=== PATIENT | female | born 1930 | race Caucasian/White ===

== ENCOUNTER 2017-01-29 14:31 | Observation (INO) ==
--- NOTE | 2017-01-29 14:57 | Emergency Department Note ---
Disposition Clinical Impression: Chest pain, HTN (hypertension), HLD (hyperlipidemia), Frail elderly, PVC ( premature ventricular contraction), Abnormal EKG, CAD (coronary artery disease) , Breast CA, Lymphedema, Hyponatremia, Cough Disposition: Admitted As Inpatient Referrals: NO,PCP [Non-Partnered Physician] - Forms: ED Satisfaction Letter General Adult HPI - General Chief complaint: ED Shortness of Breath/Dyspnea Stated complaint: SOB Time Seen by Provider: 01/29/17 14:40 Source: patient Limitations: no limitations - History of Present Illness HPI Narrative: 86-year-old female reports the emergency department complaining of a cough and runny nose. The patient reports her right arm is chronically swollen secondary to lymphedema status post breast resection for malignancy. She states that the arm was red and she thought she had cellulitis so she took some ampicillin that she had at home for several days and now her arm is no longer red. She reports her arm is markedly improved. The patient reports she felt somewhat chilled and had general body aches associated with a cough and runny nose. She ate she has had intermittent sharp chest pain she states she is somewhat short of breath typically with exertion. She also describes an irregular heartbeat.. There is no history of abdominal pain vomiting or diarrhea. No leg swelling or pain no coughing up blood or syncope confusion or difficulty moving the arms or legs independently. There is no history of acute back pain no fevers noted. No urinary symptoms. There is no history of dysarthria or trouble swallowing. Pain Scale: 8 - Related Data Home Medications Medication Instructions Recorded Confirmed Potassium Chloride [Klor-Con 2 cap PO BID 11/18/15 12/20/15 Sprinkle] Amlodipine Besylate 5 mg PO DAILY 12/20/15 12/20/15 Carboxymethylcellulose Sodium 1 drop OP QID 12/20/15 12/20/15 [Refresh Tears] Cephalexin [Keflex] 500 mg PO DAILY 12/20/15 12/20/15 Cyclosporine [Restasis] 1 each OP Q12H 12/20/15 12/20/15 Meclizine [Antivert] 25 mg PO TID PRN 12/20/15 12/20/15 Simvastatin [Zocor] 20 mg PO HS 12/20/15 12/20/15 Triamterene/HCTZ 37.5/25mg 1.5 each PO DAILY 12/20/15 12/20/15 [Dyazide] Vit A/C/E AC/Znox/Cupric Oxide 2 each PO DAILY 12/20/15 12/20/15 [Eye Vitamin-Minerals Tablet] Previous Rx's Medication Instructions Recorded Lactulose 10 gm PO BID PRN #200 mls 11/18/15 Dicyclomine [Bentyl] 10 mg PO DAILY #2 capsule 11/21/15 Pantoprazole Sodium [Protonix] 40 mg PO DAILY #30 tablet. 12/20/15 Sucralfate [Carafate] 1 gm PO BID #60 tablet 12/20/15 Allergies Allergy/AdvReac Type Severity Reaction Status Date / Time metoclopramide [From Reglan] Allergy Unknown Unknown Verified 05/12/16 11:38 Sulfa (Sulfonamide Allergy Unknown Unknown Verified 05/12/16 11:38 Antibiotics) tolterodine [From Detrol] Allergy Unknown Unknown Verified 05/12/16 11:38 All systems ED: reviewed and negative except as stated. 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 Absent: tenderness - Respiratory Respiratory exam: Present: normal lung sounds bilaterally. Absent: respiratory distress - Cardiovascular Cardiovascular exam: Present: regular rate, normal rhythm, normal heart sounds - Abdominal Exam Abdominal exam: Present: soft, Non-Tender, normal bowel sounds. Absent: tenderness, distention, guarding, rebound, rigidity - Extremities Exam Extremities exam: Present: normal inspection, full ROM, normal capillary refill , other (Exam is warm and well perfused without cyanosis, chronic-appearing lymphedema right upper extremity, no reddening of the skin, no pain in the calves, all 4 extremities are warm and well perfused with no evidence of neuromuscular neurovascular compromise no trauma.). Absent: tenderness, pedal edema, joint swelling, calf tenderness - Expanded Lower Extremity Exam Lower leg exam: Absent: Homans' sign Neurovascular/Tendon exam: Present: normal capillary refill. Absent: motor deficit, sensory deficit, tendon deficit, extremity cold to touch, pallor - Back Exam Back exam: Present: normal inspection, full ROM. Absent: tenderness, CVA tenderness (R), CVA tenderness (L), vertebral tenderness - Neurological Exam Neurological exam: Present: alert, oriented X3, CN II-XII intact. Absent: motor sensory deficit - Psychiatric Psychiatric exam: Present: normal affect, normal mood - Skin Skin exam: Present: warm, dry, intact, normal color. Absent: rash, cyanosis, diaphoresis, erythema, pallor, mottled Course Vital Signs Temperature 98.0 F 01/29/17 14:32 Pulse Rate 70 01/29/17 14:32 Respiratory Rate 16 01/29/17 14:32 Blood Pressure 167/54 01/29/17 14:32 O2 Sat by Pulse Oximetry 97 01/29/17 14:32 Temperature 98.0 F 01/29/17 14:32 Pulse Rate 80 01/29/17 15:36 Respiratory Rate 16 01/29/17 15:36 Blood Pressure 142/77 01/29/17 15:36 O2 Sat by Pulse Oximetry 97 01/29/17 15:36 Oxygen Delivery Oxygen Delivery Room Air Medical Decision Making - [facility] Narrative Medical decision making narrative: The patient is throwing quite a few PVCs on the monitor, she is elderly, has a history of hypertension, hyperlipidemia, CAD per chart, malignancy, has a notably abnormal EKG is complaining of progressive dyspnea particularly on exertion, she also complains of sharp intermittent chest pain and notes palpitations.. The patient has history of breast cancer and chronic right upper extremity edema. Her PERC score is slightly positive, her Well's score is negative. I do not necessarily suspect PE or DVT. Based on the patient's age and multiple cardiovascular comorbidities in association with complaints of dyspnea on exertion and intermittent chest pain I thought it would be appropriate to admit the patient for observation. I discussed the case with the hospitalist on-call. Aspirin was ordered. - Lab Data Lab results reviewed: Yes I reviewed the patient's lab results. Result diagrams: 01/29/17 15:20 01/29/17 15:20 Lab Results 01/29/17 01/29/17 01/29/17 Range/Units 15:20 15:20 15:20 WBC 9.7 (4.3-11.1) K/mcL RBC 4.35 (3.82-4.97) M/mcL Hgb 13.4 (11.5-15.4) g/dL Hct 37.0 (35.3-44.9) % MCV 85.1 (83.0-100.0) fL MCH 30.8 (28.0-33.3) pg MCHC 36.2 H (31.6-35.5) g/dL RDW 12.2 (11.5-14.5) % Plt Count 312 (140-400) K/mcL MPV 9.3 L (9.4-12.4) fL Immature Gran % 0.4 (0-4) % Seg Neutrophils % 64.0 % Lymphocytes % 25.0 % Monocytes % 9.4 % Eosinophils % 0.7 % Basophils % 0.5 % Neutrophils # 6.2 (1.6-8.9) K/mcL Lymphocytes # 2.4 (0.6-4.6) K/mcL Monocytes # 0.9 (0.0-1.3) K/mcL Eosinophils # 0.1 (0.0-0.6) K/mcL Basophils # 0.1 (0.0-0.2) K/mcL Sodium 129 L (136-145) mEq/L Potassium 3.8 (3.5-4.5) mEq/L Chloride 96 L (98-109) mEq/L Carbon Dioxide 23 (19-29) mEq/L BUN 10 (7-20) mg/dL Creatinine 0.67 (0.57-1.11) mg/dL Est GFR ( Amer) > 60 (> 60) Est GFR (Non-Af Amer) > 60 (> 60) BUN/Creatinine Ratio 15 (6-26) Glucose 106 H (70-99) mg/dL Calculated Osmolality 267 L (280-300) Lactic Acid 0.7 (0.5-2.2) mmol/L Calcium 10.4 (8.6-10.8) mg/dL Total Bilirubin 0.8 (0.2-1.2) mg/dL Direct Bilirubin 0.3 (0.0-0.5) mg/dL Indirect Bilirubin 0.5 (0.0-1.2) mg/dL AST 18 (5-34) Units/L ALT 17 (0-55) Units/L Alkaline Phosphatase 54 (38-126) Units/L Troponin I (0-0.03) ng/mL B-Natriuretic Peptide (0-100) pg/mL Serum Total Protein 7.0 (6.0-8.3) g/dL Albumin 4.1 (3.5-5.0) g/dL Globulin 2.9 (2.4-3.5) g/dL Albumin/Globulin Ratio 1.4 (1.1-2.2) Urine Color (Yellow) Urine Clarity (Clear) Urine pH (5.0-8.0) pH Units Ur Specific [place] (1.010-1.025) Urine Protein (Neg-Trace) mg/dL Urine Glucose (UA) (Normal) mg/dL Urine Ketones (Negative) mg/dL Urine Blood (Negative) Urine Nitrite (Negative) Urine Bilirubin (Negative) Urine Urobilinogen (Normal) mg/dL Ur Leukocyte Esterase (Negative) 01/29/17 01/29/17 01/29/17 Range/Units 15:20 15:20 16:03 WBC (4.3-11.1) K/mcL RBC (3.82-4.97) M/mcL Hgb (11.5-15.4) g/dL Hct (35.3-44.9) % MCV (83.0-100.0) fL MCH (28.0-33.3) pg MCHC (31.6-35.5) g/dL RDW (11.5-14.5) % Plt Count (140-400) K/mcL MPV (9.4-12.4) fL Immature Gran % (0-4) % Seg Neutrophils % % Lymphocytes % % Monocytes % % Eosinophils % % Basophils % % Neutrophils # (1.6-8.9) K/mcL Lymphocytes # (0.6-4.6) K/mcL Monocytes # (0.0-1.3) K/mcL Eosinophils # (0.0-0.6) K/mcL Basophils # (0.0-0.2) K/mcL Sodium (136-145) mEq/L Potassium (3.5-4.5) mEq/L Chloride (98-109) mEq/L Carbon Dioxide (19-29) mEq/L BUN (7-20) mg/dL Creatinine (0.57-1.11) mg/dL Est GFR ( Amer) (> 60) Est GFR (Non-Af Amer) (> 60) BUN/Creatinine Ratio (6-26) Glucose (70-99) mg/dL Calculated Osmolality (280-300) Lactic Acid (0.5-2.2) mmol/L Calcium (8.6-10.8) mg/dL Total Bilirubin (0.2-1.2) mg/dL Direct Bilirubin (0.0-0.5) mg/dL Indirect Bilirubin (0.0-1.2) mg/dL AST (5-34) Units/L ALT (0-55) Units/L Alkaline Phosphatase (38-126) Units/L Troponin I 0.00 (0-0.03) ng/mL B-Natriuretic Peptide 65 (0-100) pg/mL Serum Total Protein (6.0-8.3) g/dL Albumin (3.5-5.0) g/dL Globulin (2.4-3.5) g/dL Albumin/Globulin Ratio (1.1-2.2) Urine Color Yellow (Yellow) Urine Clarity Clear (Clear) Urine pH 7.0 (5.0-8.0) pH Units Ur Specific [place] 1.008 L (1.010-1.025) Urine Protein Negative (Neg-Trace) mg/dL Urine Glucose (UA) Normal (Normal) mg/dL Urine Ketones Negative (Negative) mg/dL Urine Blood Negative (Negative) Urine Nitrite Negative (Negative) Urine Bilirubin Negative (Negative) Urine Urobilinogen Normal (Normal) mg/dL Ur Leukocyte Esterase Negative (Negative) - Radiology Data Radiology results reviewed: Yes I reviewed the patient's radiology results.
[2017-01-29 15:28] LABS: Basophils # 0.1 K/mcL (0.0-0.2); Basophils % 0.5 %; Eosinophils # 0.1 K/mcL (0.0-0.6); Eosinophils % 0.7 %; Hemoglobin 13.4 g/dL (11.5-15.4); Immature Granulocytes % 0.4 % (0-4); Lymphocytes # 2.4 K/mcL (0.6-4.6); Mean Corpuscular HGB Conc 36.2 g/dL (31.6-35.5); Mean Corpuscular Hemoglobin 30.8 pg (28.0-33.3); Mean Corpuscular Volume 85.1 fL (83.0-100.0); Mean Platelet Volume 9.3 fL (9.4-12.4); Monocytes # 0.9 K/mcL (0.0-1.3); Monocytes % 9.4 %; Neutrophils # 6.2 K/mcL (1.6-8.9); Platelet Count 312 K/mcL (140-400); Red Blood Count 4.35 M/mcL (3.82-4.97); Red Cell Distribution Width 12.2 % (11.5-14.5)
[2017-01-29] MEDS ORDERED: Ipratropium/Albuterol Neb 3 ML IH ONE (15:35)
[2017-01-29 15:45] LABS: Alanine Aminotransferase 17 Units/L (0-55); Albumin 4.1 g/dL (3.5-5.0); Albumin/Globulin Ratio 1.4 (1.1-2.2); Alkaline Phosphatase 54 Units/L (38-126); Aspartate Amino Transferase 18 Units/L (5-34); BUN/Creatinine Ratio 15 (6-26); Bilirubin,Direct 0.3 mg/dL (0.0-0.5); Bilirubin,Indirect 0.5 mg/dL (0.0-1.2); Bilirubin,Total 0.8 mg/dL (0.2-1.2); Blood Urea Nitrogen 10 mg/dL (7-20); Calcium 10.4 mg/dL (8.6-10.8); Carbon Dioxide 23 mEq/L (19-29); Chloride 96 mEq/L (98-109); Globulin 2.9 g/dL (2.4-3.5); Glucose 106 mg/dL (70-99); Osmolality,Calculated 267 (280-300); Potassium 3.8 mEq/L (3.5-4.5); Sodium 129 mEq/L (136-145); eGFR For African Americans > 60 (> 60); eGFR For Non-African Americans > 60 (> 60)
[2017-01-29 16:24] LABS: Bilirubin,Urine Negative (Negative); Blood,Urine Negative (Negative); Clarity,Urine Clear (Clear); Color,Urine Yellow (Yellow); Glucose,Urine (UA) Normal (Normal); Ketones,Urine Negative (Negative); Leukocyte Esterase,Urine Negative (Negative); Nitrite,Urine Negative (Negative); Protein,Urine Negative (Neg-Trace); Specific Gravity,Urine 1.008 (1.010-1.025); Urobilinogen,Urine Normal (Normal)
[2017-01-29] MEDS ORDERED: Aspirin 325 MG TABLET PO ONE (16:55)
--- NOTE | 2017-01-29 18:24 | Electrocardiograph Report ---
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
[2017-01-29 18:37] LABS: C-Reactive Protein 4 mg/L (Less than 5)
[2017-01-29] MEDS ORDERED: Naloxone 0.4 MG/ML INJ IVP PRN (20:31)
[2017-01-29] MEDS ORDERED: Ondansetron 4 MG/2 ML VIAL IVP PRN (20:31)
--- NOTE | 2017-01-29 20:52 | Internal Med History&Physical ---
Date of Encounter: 01/29/17 Time of Encounter: 20:39 Assessment and Plan (1) Shortness of breath Current visit: Yes Status: Acute In association with recent decreased mobility, history of malignancy, etc will check for PE. Could be related to arrhythmia, CAD, URI, etc. CXR without infiltrate. - CTA to rule out PE - Trend troponins - Monitor on telemetry - Duonebs PRN - Influenza swab pending. - ECHO in AM (2) CAD (coronary artery disease) Current visit: Yes Status: Acute Patient denies chest pain, but notes that she is having frequent palpitations. Telemetry shows frequent PVCs. - Monitor overnight on telemetry - Consider stress test in AM if other testing negative for PE, inluenza, etc. ( last stress 2009) Qualifiers: Coronary Disease-Associated Artery/Lesion type: unspecified vessel or lesion type [place] vs. transplanted heart: [place] heart Associated angina: without angina Qualified Code(s): I25.10 - Atherosclerotic heart disease of [place] coronary artery without angina pectoris (3) Lymphedema Current visit: Yes Status: Acute With cellulitis over the past week self treated by patient with ampicillin. Current exam shows edema of the right arm but no erythema, patient states it is much improved - Continue ampicillin for full week course (4) HTN (hypertension) Current visit: Yes Status: Acute BP stable - Continue home meds Qualifiers: Hypertension type: essential hypertension Qualified Code(s): I10 - Essential (primary) hypertension Internal Medicine - H&P: HPI Chief complaint: Shortness of breath, palpitations Admitted From: Emergency Dept Plans for Post Hospital Care: Home History of present illness: Ms. Land is a 86 year old female with history of recurrent cellulitis of the right arm in setting of lymphedema from mastectomy, HTN, and chronic cough who presented to the ER this afternoon with complaint of shortness of breath and palpitations. She notes that one week ago she had chills and right arm pain. She noticed the right arm was very red and hot to touch - she recognized that this was similar to previous episodes of cellulitis so she began taking ampicillin which she had at home. The cellulitis has completely resolved although she notes the arm is still slightly more edematous than at baseline. She has a chronic cough which has worsened over the past week and has developed worsening palpitations. She is very short of breath with any exertion. She has been minimally active this week because of the cellulitis. She does not think she has ever had a blood clot in the past. 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 Past Med Surg Social Fam HX - Past Medical History Medical history: cancer (breast cancer s/p mastectomy 1968, mass at head of pancreas), coronary artery disease, CVA, hyperlipidemia, hypertension, other Psychiatric history: anxiety - Past Surgical History Surgical History: other (right radical mastectomy 1968, hysterectomy 1973, right ear skin cancer surgery 2014, [facility] x3 (1986, 1994, 2005)) - Social History Smoking Status: Never smoker Smokeless Tobacco Status: No Alcohol use: none Drug use: none - Family History Father Hx Family Cancer: Yes Internal Medicine - H&P: Meds Potassium Chloride [Klor-Con Sprinkle] 20 meq PO BID 11/18/15 [History] Amlodipine Besylate 5 mg PO DAILY 12/20/15 [History] Carboxymethylcellulose Sodium [Refresh Tears] 1 drop OP QID 12/20/15 [History] Cyclosporine [Restasis] 1 drop OP Q12H 12/20/15 [History] Meclizine [Antivert] 25 mg PO TID PRN 12/20/15 [History] Simvastatin [Zocor] 20 mg PO HS 12/20/15 [History] Triamterene/HCTZ 37.5/25mg [Dyazide] 1 tab PO DAILY 12/20/15 [History] Vit A/C/E AC/Znox/Cupric Oxide [Eye Vitamin-Minerals Tablet] 2 each PO DAILY [History] Diazepam [Valium] 5 mg PO TID 01/29/17 [History] Ranitidine HCl [Acid Patient Financial Services Coordinator] 150 mg PO DAILY 01/29/17 [History] Allergies metoclopramide [From Reglan] Allergy (Unknown, Verified 05/12/16 11:38) Unknown Sulfa (Sulfonamide Antibiotics) Allergy (Unknown, Verified 05/12/16 11:38) Unknown tolterodine [From Detrol] Allergy (Unknown, Verified 05/12/16 11:38) Unknown All Systems PM: A 10-system review of systems was performed and is negative for pertinent findings except as documented above in the HPI. - Constitutional Vitals: Temp Pulse Resp BP Pulse Ox 98 F 84 16 165/75 96 01/29/17 18:47 01/29/17 18:47 01/29/17 18:47 01/29/17 18:47 01/29/17 18:47 General appearance: Present: A&O X 3 Exam: Patient in no acute distress, resting comfortably in bed - Head Head exam: Present: atraumatic - Eye Eye exam: Present: EOMI, sclera anicteric - ENT ENT exam: Present: mucous membranes moist - Neck Neck exam general surgery: Present: supple - Respiratory Respiratory exam: Present: CTAB. Absent: wheezes - Cardiovascular Cardiovascular exam: Present: RRR. Absent: diastolic murmur, gallop, rubs, systolic murmur - GI/Abdominal GI/Abdominal exam: Present: normal bowel sounds, soft. Absent: distended, tenderness - Extremities Exam Extremities exam: Absent: pedal edema - Neurological Exam Neurological exam: Present: no focal deficits - Skin Skin exam: Absent: rash Internal Med - H&P Results - Labs CBC & Chem 7: 01/29/17 15:20 01/29/17 15:20
[2017-01-29] MEDS: (Cyclosporine [Restasis] 1 DROP) OP SCH (23:15)
[2017-01-29] MEDS: Artificial Tears SOLN 15 ML BOTTLE OP SCH (23:21)
[2017-01-29] MEDS: diazePAM 5 MG TABLET PO SCH (23:23)
[2017-01-29] MEDS: Amoxicillin 500 MG CAPSULE PO SCH (23:24)
[2017-01-30 04:19] LABS: Eosinophils % 1.4 %; Hematocrit 38.1 % (35.3-44.9); Hemoglobin 13.4 g/dL (11.5-15.4); Immature Granulocytes % 0.2 % (0-4); Mean Corpuscular HGB Conc 35.2 g/dL (31.6-35.5); Mean Corpuscular Hemoglobin 29.5 pg (28.0-33.3); Mean Corpuscular Volume 83.9 fL (83.0-100.0); Mean Platelet Volume 9.4 fL (9.4-12.4); Monocytes % 11.1 %; Platelet Count 322 K/mcL (140-400); Red Blood Count 4.54 M/mcL (3.82-4.97)
[2017-01-30 04:20] LABS: Basophils % 0.3 %; Eosinophils # 0.1 K/mcL (0.0-0.6); Lymphocytes # 2.8 K/mcL (0.6-4.6); Neutrophils # 4.9 K/mcL (1.6-8.9)
[2017-01-30 04:41] LABS: BUN/Creatinine Ratio 16 (6-26); Blood Urea Nitrogen 10 mg/dL (7-20); Calcium 9.9 mg/dL (8.6-10.8); Carbon Dioxide 24 mEq/L (19-29); Chloride 98 mEq/L (98-109); Chol/HDL Ratio 5.5 (0-4.9); Cholesterol 169 mg/dL (< 200); Glucose 98 mg/dL (70-99); HDL Cholesterol 31 mg/dL (40-59); LDL Cholesterol,Calculated 106 mg/dL (0-99); Osmolality,Calculated 277 (280-300); Potassium 3.7 mEq/L (3.5-4.5); Sodium 134 mEq/L (136-145); Triglycerides 161 mg/dL (< 150); eGFR For African Americans > 60 (> 60); eGFR For Non-African Americans > 60 (> 60)
[2017-01-30] MEDS: amLODIPine 5 MG TABLET PO SCH (09:10)
[2017-01-30] MEDS: (Cyclosporine [Restasis] 1 DROP) OP SCH ×2 (09:11→20:13)
[2017-01-30] MEDS: diazePAM 5 MG TABLET PO SCH ×3 (09:11→20:18)
[2017-01-30] MEDS: Amoxicillin 500 MG CAPSULE PO SCH ×3 (09:11→23:49)
[2017-01-30] MEDS: Famotidine 20 MG TABLET PO SCH (09:11)
[2017-01-30] MEDS: Artificial Tears SOLN 15 ML BOTTLE OP SCH ×4 (09:12→20:19)
--- NOTE | 2017-01-30 12:28 | ECHO - Doppler Report ---
Echocardiogram Name: Tessa Land Date of Study: 01/30/2017 Date: 1930 Ht: 60.0 in Medical Record#: [id number] Age: 86 Wt: 123.0 lb Gender: Female BSA: 1.52 Order #: [id number] [facility] Room #: 3B32 Reading Physician: Amanda Mcgill DO Continuous Improvement Coordinator: Charisse Salvador Ordering Physician: Suzy Harris MD Primary Physician: Joesph Jones DO Indications: Shortness of breath, Palpitations Impressions: LVEF 55%. Normal left ventricular size and systolic function. There is evidence of mild diastolic dysfunction of the left ventricle. Normal right ventricular size and function. Mild- moderate aortic regurgitation. Mild-moderate mitral regurgitation. No pulmonary hypertension. Left Ventricular Wall Motion: Rest Echo Findings The mid inferior lateral and basal inferior lateral cervantes were not visualized. All other wall segments showed normal motion. Findings: Study Quality * Technically sub-optimal due to poor echocardiographic windows. ECG Findings * Normal sinus rhythm. Left Atrium * Normal left atrial size. Mitral Valve * Normal mitral valve structure. * No mitral stenosis. * Mild-moderate mitral regurgitation. Tricuspid Valve * Trace tricuspid regurgitation. * Normal tricuspid valve structure. * Estimated RA pressure is 3 mmHg. * Estimated RVSP is 30 mmHg. * No pulmonary hypertension. Pulmonic Valve * Pulmonic valve is not well visualized. * No pulmonic stenosis. * Trace pulmonic regurgitation. Pulmonary Artery * Pulmonary artery not well visualized. Aortic Valve * Moderately calcified aortic valve leaflets. * Trileaflet aortic valve. * Mild-moderate aortic regurgitation. * No aortic stenosis. Left Ventricle * LVEF 55%. * Normal LV chamber size, wall thickness and function. * Mild left ventricular diastolic dysfunction. Right Ventricle * Normal right ventricular structure and function. Right Atrium * Normal right atrial size. Pericardium * There is no pericardial effusion present. Interatrial Septum * No evidence of PFO by color Doppler. IVC * Normal IVC dimensions and inspiratory collapse. Aorta * Normally sized aortic root. History Hypertension Hypercholesteremia 05/04/2015 a Previous Echo was performed. Measurements: BP: 129/ 61 2D Normal Values IVSd: .80 cm 0.6 - 1.0 cm LVIDd: 4.70 cm 3.7 - 5.6 cm LVPWd: .80 cm 0.6 - 1.1 cm LVIDs: 3.30 cm 1.5 - 3.6 cm AO: 2.50 cm < 4.0 cm LA: 3.30 cm 2.0 - 4.0cm %FS: 29.80 cm >25 % LVOT Diam: 2.00 cm LA volume: 41 Mitral Valve Peak E:.91 m/sec Peak A:1.39 m/sec E/A Ratio:0.7 Peak E' Lat Black:10.2 cm/s Peak E' Med Black:8.29 cm/s E/E' Lat Ratio:8.9 E/E' Med Ratio:11 LVOT Peak Black:1.20 m/sec Mean Black:.72 m/sec Peak Grad:6.00 mmHg Mean Grad:2.00 mmHg Aortic Valve Peak Black:2.35 m/sec Mean Black:1.54 m/sec Peak Grad:22.00 mmHg Mean Grad:11.00 mmHg Valve Area:1.54 cm2 Tricuspid Valve TV Regurg Peak Grad: 27.00mmHg TV Regurg Peak Black: 2.61m/sec Updated by Amanda Mcgill on 01/30/2017 12:20:39 PM electronically signed on 01/30/2017 12:21:23 PM with status of Final Wall Motion Vogt: 1=Normal, 2=Hypokinesis, 3=Akinesis, 4=Dyskinesis, 5=Aneurysmal, 6=Hyperkinetic, X=Not Visualized (Blank)=Missing
--- NOTE | 2017-01-30 17:43 | Internal Med Progress Note ---
Date of Encounter: 01/30/17 Time of Encounter: 13:00 - Assessment and plan (1) Shortness of breath Current Visit: Yes Status: Acute Assessment and plan: Patient reports 4 week history of shortness of breath. Chest x-ray is negative for any acute process. Chest CTA is negative for PE or acute pulmonary abnormality. There is no leukocytosis. Her lungs are clear diminished. She is not short of breath all the time, could be related to PVCs. Is no peripheral edema and she denies cough. Her flu swab was negative. Her troponins were also negative 3. Pt did become sob when she went to the bathroom and came back to her bed. EKG done at that time. Negative for ischemia or TWI Telemetry Duo nebs Monitor labs Continuous pulse ox 02 as needed (2) Abnormal EKG Current Visit: Yes Status: Acute Assessment and plan: Patient had EKG today that showed NSR with frequent PVCs and 1st degree block. Rate 83, CA interval 235, QRS 153, QTc 452. Prior EKG very similar. (3) Breast CA Current Visit: Yes Status: Chronic Assessment and plan: Chronic. Qualifiers: Breast location: unspecified site of breast Patient sex: female Laterality: right Qualified Code(s): C50.911 - Malignant neoplasm of unspecified site of right female breast (4) Frail elderly Current Visit: Yes Status: Acute Assessment and plan: Fall precautions. Lives with . Pt with history of breast ca. PT/OT (5) HLD (hyperlipidemia) Current Visit: Yes Status: Acute Assessment and plan: Chronic. Continue home medications. Triglycerides elevated LDL elevated HDL low Qualifiers: Hyperlipidemia type: unspecified Qualified Code(s): E78.5 - Hyperlipidemia , unspecified (6) HTN (hypertension) Current Visit: Yes Status: Chronic Assessment and plan: Chronic. Continue home medications. Qualifiers: Hypertension type: essential hypertension Qualified Code(s): I10 - Essential (primary) hypertension - Time Spent With Patient less than 15 minutes - Subjective Interval history: Mrs. Land reports a four-week history of difficulty breathing, cough, and rhinorrhea.. She states that she would thought she would get better. She recently treated herself at home with ampicillin that she had left over for a right arm cellulitis. She has chronic lymphedema from mastectomy on the right side. She says that her arm was very red swollen and painful, she took leftover ampicillin and now it appears to have resolved. During this time she reports general malaise, chills, and body aches. - Constitutional Vitals: Temp Pulse Resp BP Pulse Ox 98.1 F 78 16 127/58 99 01/30/17 15:42 01/30/17 15:42 01/30/17 14:56 01/30/17 15:42 01/30/17 15:42 General appearance: Present: cooperative, A&O X 3, pleasant, answers questions appropriately - Head Head exam: Present: normal inspection - Eye Eye exam: Present: normal appearance, conjuntiva pink - ENT ENT exam: Present: mucous membranes moist, normal exam - Neck Neck exam general surgery: Present: normal inspection. Absent: lymphadenopathy , tenderness - Respiratory Respiratory exam: Present: decreased breath sounds, CTAB. Absent: chest wall tenderness - Cardiovascular Cardiovascular exam: Present: irregular rhythm, +S1, +S2 Additional comments: Apical is irregular. S1-S2. Radial is also irregular. Coincides with trigeminy on monitor. - GI/Abdominal GI/Abdominal exam: Present: normal bowel sounds, soft. Absent: tenderness - Neurological Exam Neurological exam: Present: alert, oriented X3, no focal deficits, strengths equal and symetr throughout Internal Medicine: Result - Labs CBC & Chem 7: 01/30/17 03:56 01/30/17 03:56 Labs: Short CBC 01/30/17 Range/Units 03:56 WBC 8.8 (4.3-11.1) K/mcL Hgb 13.4 (11.5-15.4) g/dL Hct 38.1 (35.3-44.9) % Plt Count 322 (140-400) K/mcL Neutrophils # 4.9 (1.6-8.9) K/mcL BMP 01/30/17 03:56 Sodium 134 L Potassium 3.7 Chloride 98 Carbon Dioxide 24 BUN 10 Creatinine 0.64 Glucose 98 Calcium 9.9 Cardiac Enzymes 01/29/17 01/30/17 Range/Units 20:56 03:56 Troponin I 0.00 0.01 (0-0.03) ng/mL - Impressions Impressions Chest CTA 01/29/17 20:33 IMPRESSION: No evidence of pulmonary embolism or acute pulmonary abnormality. D/ / Beto Radford MD / Beto Radford MD Interpreting Provider: Beto Radford MD Consult Discharge Plan - Plan Referrals: Joesph Jones DO [Primary Care Provider] -
[2017-01-31 05:55] LABS: Basophils % 0.5 %; Eosinophils # 0.2 K/mcL (0.0-0.6); Eosinophils % 2.2 %; Hematocrit 38.2 % (35.3-44.9); Hemoglobin 13.1 g/dL (11.5-15.4); Immature Granulocytes % 0.4 % (0-4); Lymphocytes % 26.3 %; Mean Corpuscular HGB Conc 34.3 g/dL (31.6-35.5); Mean Corpuscular Hemoglobin 29.6 pg (28.0-33.3); Mean Corpuscular Volume 86.4 fL (83.0-100.0); Mean Platelet Volume 9.2 fL (9.4-12.4); Monocytes # 0.8 K/mcL (0.0-1.3); Monocytes % 9.8 %; Neutrophils # 4.7 K/mcL (1.6-8.9); Platelet Count 295 K/mcL (140-400); Red Blood Count 4.42 M/mcL (3.82-4.97); Red Cell Distribution Width 12.2 % (11.5-14.5); Segmented Neutrophils % 60.8 %
[2017-01-31 06:10] LABS: BUN/Creatinine Ratio 26 (6-26); Blood Urea Nitrogen 17 mg/dL (7-20); Calcium 9.7 mg/dL (8.6-10.8); Carbon Dioxide 24 mEq/L (19-29); Chloride 101 mEq/L (98-109); Glucose 108 mg/dL (70-99); Osmolality,Calculated 280 (280-300); Potassium 3.7 mEq/L (3.5-4.5); Sodium 134 mEq/L (136-145); eGFR For African Americans > 60 (> 60); eGFR For Non-African Americans > 60 (> 60)
[2017-01-31] MEDS ORDERED: Regadenoson 0.4 MG/5 ML SYRINGE IVP ONE (08:16)
[2017-01-31] MEDS: diazePAM 5 MG TABLET PO SCH ×2 (10:36→14:58)
[2017-01-31] MEDS: amLODIPine 5 MG TABLET PO SCH (10:36)
[2017-01-31] MEDS: (Cyclosporine [Restasis] 1 DROP) OP SCH (10:36)
[2017-01-31] MEDS: Amoxicillin 500 MG CAPSULE PO SCH ×2 (10:36→16:52)
[2017-01-31] MEDS: Famotidine 20 MG TABLET PO SCH (10:36)
[2017-01-31] MEDS: Artificial Tears SOLN 15 ML BOTTLE OP SCH ×2 (10:36→13:15)
[2017-01-31] MEDS ORDERED: Acetaminophen 325 MG TABLET PO PRN (10:43)
--- NOTE | 2017-01-31 13:46 | Nuclear Medicine Stress Report ---
Regadenoson Nuclear Stress Name: Tessa Land Date of Study: 01/31/2017 Date: 1930 Ht: 60.0 in Medical Record#: [id number] Age: 86 Wt: 124.0 lb Gender: Female Order #: [id number] Location: [facility] Room: [facility] Supervising Provider: Asha Gallardo CNP Reading Physician: Amanda Mcgill DO Ordering Physician: Yaquelin Danielle CNP Primary Care Physician: Joesph Jones DO Stress Technologist: Bárbara Washington AGRICULTURAL EQUIPMENT OPERATOR, CCT Office Professional: Shante Madden Indications: Chest Pain, CoUGH Impression: Perfusion imaging was negative for ischemia or infarct. Frequent PVCs. Chest pain, 2/10 prior to and throughout the procedure without change. Non-diagnostic finding. LVEF 70%. History: Hypertension Hypercholesteremia Stress Test Summary: Stress Test Type: Pharmacologic Regadenoson 0.4mg/5ml given IV Baseline Information: Initial Heart Rate: 75 Blood Pressure: 134/66 Stress Information: Test Terminated Due to (primary): As per protocol Maximum Blood Pressure: 128/70 Maximum Heart Rate: 95 Percent Maximum Heart Rate Achieved: 71 Double Product: [id number] METS Reached: 1 Symptoms: Chest pain Nuclear Summary: SPECT myocardial perfusion imaging using Tc99m Sestamibi given intravenously was performed at rest and following cardiac stress testing. The resting images were obtained following initial dose of 11.0 mCi. Following stress an additional dose of 33.7 mCi was given at peak exercise or 30 seconds post regadenoson infusion. Medication Given: Time Medication Dose Units Route Findings: Stress Note * Resting ECG demonstrated normal sinus rhythm with RBBB, PVCs and nonspecific ST abnormalities. * No appreciable change in ECG from baseline during pharmacologic infusion. * frequent PVCs noted during stress. * Patient described 2/10 chest pain prior to start of study without change during study. Hemodynamic responses * Normal hemodynamic responses to pharmacologic stress. Study Quality * Study quality is good. Gated EF > 70% * Gated EF > 70%. Left Ventricle * The left ventricle is not dilated. TID * No evidence of transient ischemic dilatation. Lung Uptake * There is no evidence of increase lung uptake. NORMALS * Normal wall motion. PERFUSION * Homogeneous rest and stress perfusion without findings of ischemia or infarct. Updated by Amanda Mcgill on 01/31/2017 1:38:41 PM electronically signed on 01/31/2017 1:40:27 PM with status of Final
--- NOTE | 2017-01-31 14:03 | Electrocardiograph Report ---
[address] [address] Test Date: 2017-01-30 Pat Name: Tessa Land Department: 115 Room: 3B32 Gender: F Auth Specialist: : [id number] Requested By: Yaquelin Danielle Order Number: [id number] Reading MD: Juan Jose Dai MD Measurements Intervals [place] Rate: 83 P: 59 MA: 220 QRS: 91 QRSD: 151 T: -18 QT: 397 QTc: 437 Interpretive Statements SINUS RHYTHM WITH FIRST DEGREE AV BLOCK WITH FREQUENT VENTRICULAR PREMATURE COMPLEXES LEFT ATRIAL ENLARGEMENT RIGHT BUNDLE BRANCH BLOCK Electronically Signed On 01-31-2017 14:01:49 EDT by Juan Jose Dai MD
[2017-01-31 15:09] VITALS: BP 144/80
--- NOTE | 2017-01-31 16:11 | Discharge Summary ---
Date of Encounter: 01/31/17 Time of Encounter: 13:05 - Discharge Diagnosis (1) Shortness of breath Priority: Primary Status: Acute Comments: 4 week history of shortness of breath without cough. Chest x-ray is negative. CTA is negative. She has no leukocytosis. Lungs are clear and diminished throughout. She did get short of breath last night when she was ambulating to the bathroom after I left. She also had a little bit of chest pain. At that time he decided to go ahead and do the stress test this morning. She reports that she is short of breath not only at times with exertion, but when she is sitting still, most likely due to the PVCs. She has no edema. Her flu swab was negative. Troponins were negative 3. EKG is negative for ischemia. She has multiple PVCs on the monitor, sometimes in bigeminy. I will give her a small dose of metoprolol 12.5 mg by mouth daily to take to see if it helps with PVCs. (2) Abnormal EKG Priority: Secondary Status: Acute Comments: Patient having multiple PVCs, sometimes in bigeminy. Patient states it sometimes does make her short of breath, but not all of the time. She is unable to quantify when she is short of breath. EKG showed normal sinus rhythm, PVCs and first-degree block. She did have a stress test today that was negative for ischemia or infarct, she did have frequent PVCs, and a 2 out of 10 chest pain before and during the procedure. Right now she denies chest pain at discharge. There was a nondiagnostic finding on the stress test. LVEF was 70%. echocardiogram was done with normal systolic fu and mild diastolic dysf. She has mild to moderate aortic and mitral regurgitation. She states that the PVCs make her short of breath. I will give her 12.5 mg of Metoprolol to assist with the PVCs and refer her to outpatient cardiology for possible Holter monitor. (3) Breast CA Priority: Secondary Status: Chronic Comments: Chronic. resolved. Qualifiers: Breast location: unspecified site of breast Patient sex: female Laterality: right Qualified Code(s): C50.911 - Malignant neoplasm of unspecified site of right female breast (4) PVC (premature ventricular contraction) Priority: Secondary Status: Acute Comments: Plan as above. (5) Frail elderly Priority: Secondary Status: Acute Comments: Pt requires assistance from her for ADLs. Pt does get around her room well and gets around without difficulty. (6) HLD (hyperlipidemia) Priority: Secondary Status: Acute Comments: Chronic. Continue home medications. Triglycerides slightly elevated, HDL low, cholesterol at goal. Qualifiers: Hyperlipidemia type: unspecified Qualified Code(s): E78.5 - Hyperlipidemia , unspecified (7) HTN (hypertension) Priority: Secondary Status: Chronic Comments: Well controlled during admission. continue home medications. Qualifiers: Hypertension type: essential hypertension Qualified Code(s): I10 - Essential (primary) hypertension - Discharge Medications Prescriptions: Metoprolol [Lopressor] 12.5 mg PO BID #60 tablet Home Medications: Potassium Chloride [Klor-Con Sprinkle] 20 meq PO BID 11/18/15 [History] Amlodipine Besylate 5 mg PO DAILY 12/20/15 [History] Carboxymethylcellulose Sodium [Refresh Tears] 1 drop OP QID 12/20/15 [History] Cyclosporine [Restasis] 1 drop OP Q12H 12/20/15 [History] Meclizine [Antivert] 25 mg PO TID PRN 12/20/15 [History] Simvastatin [Zocor] 20 mg PO HS 12/20/15 [History] Triamterene/HCTZ 37.5/25mg [Dyazide] 1 tab PO DAILY 12/20/15 [History] Vit A/C/E AC/Znox/Cupric Oxide [Eye Vitamin-Minerals Tablet] 2 each PO DAILY [History] Diazepam [Valium] 5 mg PO TID 01/29/17 [History] Ranitidine HCl [Acid Sign Poster] 150 mg PO DAILY 01/29/17 [History] Metoprolol [Lopressor] 12.5 mg PO BID #60 tablet 01/31/17 [Rx] Allergies/Adverse Reactions: Allergies metoclopramide [From Reglan] Allergy (Unknown, Verified 05/12/16 11:38) Unknown Sulfa (Sulfonamide Antibiotics) Allergy (Unknown, Verified 05/12/16 11:38) Unknown tolterodine [From Detrol] Allergy (Unknown, Verified 05/12/16 11:38) Unknown Procedures/tests Complete & Pending: Procedures Performed prior 72 hours Category Date Time Status CTA chest [CT angio chest] [CT] Stat Cat Scan 01/29/17 20:33 Completed NM luis armando perf SPECT multi [NM] Routine Exams 01/30/17 21:46 Taken ECG 12 lead ECG [ECG] Routine Y 01/30/17 15:35 Completed EV echocardiogram Routine Y 01/30/17 07:21 Completed SP pharm nuclear stress Routine Y 01/31/17 06:00 Completed Date of admission: 01/29/17 18:06 Primary care physician: Joesph Jones Consults: 01/30/17 17:55 Consult to Occupational Therapy [CONS] Routine Comment: Evaluate, develop and implement POC Consult to Physical Therapy [CONS] Routine Comment: Evaluate, develop and implement POC Discharging clinician: Yaquelin Danielle Anticipated date of discharge: 01/31/17 - Patient Status Disposition: Home, Self-Care Condition: Good - Ambulatory Orders Ambulatory Orders: Referral to Cardiology [CONS] Time Frame: 1 Week, Facility: [facility], Location: [facility] Cardiology - Discharge Instructions Follow Up With: Joesph Jones, [Primary Care Provider] - Additional Instructions: Start your new medication in the morning. Continue the rest of your home medications Remember to drink fluids and change positions slowly Return to the ER for any other problems or concerns or if you have any new symptoms. - Diet and Activity Activity: increase activity as tolerated Diet: advance to your usual diet Interval History: Mrs. Land is an 86-year-old female who presented to the emergency department on January 29 with a 4 week history of difficulty breathing, nonproductive cough, and rhinorrhea. She states that she thought she would get better. Patient has lymphedema to right arm from breast cancer surgery. She states that her right arm had cellulitis was very red and painful and recently treated herself with ampicillin that she had at home from her primary care physician. Her arm actually looks very good there is no redness or pain or streaking or drainage. Her chest x-ray in the emergency department was negative as was her CTA. She has no leukocytosis her lungs are clear and diminished. She reports shortness of breath at times. She did become short of breath as she was walking in her room last night and did have mild chest pain. An EKG was done that showed normal sinus rhythm first-degree block and PVCs. Patient and nuclear stress test today that was negative for ischemia or infarct, frequent PVCs, and LVEF of 70%. She did have nondiagnostic 2 out of 10 chest pain throughout the procedure without any change. She had an echocardiogram yesterday with an LVEF of 55% mild diastolic dysfunction. Patient will be sent home on her normal home medications and I will also add metoprolol 12.5 mg by mouth twice a day for the PVCs to relieve the symptoms. I have made an outpatient referral to cardiology per patient's request. She and I have discussed slowly changing positions and maintaining adequate hydration. She is stable for discharge. She will get her first dose of metoprolol here tonight since it is Wednesday night and it is almost 4:30. Her is at judaism and will not be able to pick her up until after judaism so she will be able to be monitored before she goes home. Hospital course: Ms. Land is a 86 year old female - Time Spent with Patient Total time spent providing and/or coordinating discharge services: - Constitutional Vitals: Temp Pulse Resp BP Pulse Ox 97.5 F L 72 16 144/80 99 01/31/17 15:07 01/31/17 15:07 01/31/17 15:07 01/31/17 15:07 01/31/17 15:07 General appearance: Present: cooperative, A&O X 3, pleasant, answers questions appropriately - ENT ENT exam: Present: mucous membranes moist, normal exam - Neck Neck exam general surgery: Absent: lymphadenopathy, tenderness - Respiratory Respiratory exam: Present: CTAB. Absent: rales, respiratory distress, wheezes - Cardiovascular Cardiovascular exam: Present: irregular rhythm, +S1, +S2 Additional comments: pt having PVCs. - GI/Abdominal GI/Abdominal exam: Present: normal bowel sounds, soft. Absent: tenderness - Extremities Exam Extremities exam: Present: normal inspection, warm, radial pulses palpable and symetrical. Absent: pedal edema, tenderness - Neurological Exam Neurological exam: Present: alert, oriented X3, strengths equal and symetr throughout. Absent: motor sensory deficit
[2017-01-31] MEDS ORDERED: Sennosides/Docusate Sodium TABLET PO SCH (21:00)
[2017-02-02] MEDS ORDERED: Famotidine 20 MG TABLET PO SCH (09:00)
== END 2017-01-31 19:20 | disposition home or self-care (01) ==
LOC: EMEROO 14:31 → 3BNU 14:31
PROVIDERS: ADMIT Internal Medicine; ATTEND Registered Nurse

== ENCOUNTER 2017-07-15 17:40 | Observation (INO) ==
--- NOTE | 2017-07-15 18:41 | Emergency Department Note ---
Disposition Clinical Impression: Suprapubic abdominal pain Disposition: Still a Patient Condition: Undetermined Forms: Work/School Release, ED Satisfaction Letter General Adult HPI - General Chief complaint: ED Abdominal Pain Stated complaint: ABD/BLADDER PAIN/GENIE Time Seen by Provider: 07/15/17 18:06 Source: patient Limitations: no limitations Nursing Notes Reviewed: Yes Vital Signs Reviewed: Yes - History of Present Illness HPI Narrative: 86 y/o female who was seen last night in our ED for suprapubic pain. She reports no improvement of her pain and so came back to the ER. She states she has urinary frequency and suprapubic pain. Prior hysterectomy. Denies fever. No N/V. No changes in BM and most recent BM was today. Denies any new symptoms since last night. Pain Scale: 4 Consistency: constant Improves with: nothing Worsens with: nothing Associated symptoms: Reports: denies other symptoms - Related Data Home Medications Medication Instructions Recorded Confirmed Potassium Chloride [Klor-Con 20 meq PO BID 11/18/15 01/29/17 Sprinkle] Amlodipine Besylate 5 mg PO DAILY 12/20/15 01/29/17 Carboxymethylcellulose Sodium 1 drop OP QID 12/20/15 01/29/17 [Refresh Tears] Cyclosporine [Restasis] 1 drop OP Q12H 12/20/15 01/29/17 Meclizine [Antivert] 25 mg PO TID PRN 12/20/15 01/29/17 Simvastatin [Zocor] 20 mg PO HS 12/20/15 01/29/17 Triamterene/HCTZ 37.5/25mg 1 tab PO DAILY 12/20/15 01/29/17 [Dyazide] Vit A/C/E AC/Znox/Cupric Oxide 2 each PO DAILY 12/20/15 01/29/17 [Eye Vitamin-Minerals Tablet] Ranitidine HCl [Acid Lawn Service Worker] 150 mg PO DAILY 01/29/17 01/29/17 diazePAM [Valium] 5 mg PO TID 01/29/17 01/29/17 Previous Rx's Medication Instructions Recorded Metoprolol [Lopressor] 12.5 mg PO BID #60 tablet 01/31/17 Allergies Allergy/AdvReac Type Severity Reaction Status Date / Time metoclopramide [From Reglan] Allergy Unknown Unknown Verified 09/12/17 21:25 Sulfa (Sulfonamide Allergy Unknown Unknown Verified 07/13/17 21:25 Antibiotics) tolterodine [From Detrol] Allergy Unknown Unknown Verified 07/13/17 21:25 All systems ED: reviewed and negative except as stated. Constitutional: Denies: fever Cardiovascular: Denies: chest pain Respiratory: Denies: cough Gastrointestinal: Reports: abdominal pain. Denies: nausea, vomiting, diarrhea Genitourinary: Reports: urgency, frequency. 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 Absent: respiratory distress - Cardiovascular Cardiovascular exam: Present: regular rate, normal rhythm - Abdominal Exam Abdominal exam: Present: soft, tenderness (suprapubic only. No rebound. ). Absent: distention - Extremities Exam Extremities exam: Present: normal inspection - Neurological Exam Neurological exam: Present: alert Course Course Narrative: Last night she had urinary retention and voided [address] a salas catheter to see if that helps with her symptoms. There is not a change in symptoms and no current need to repeat a CT scan or labwork. CT was reviewed from last night. This patient has been signed out to the night team and they will assume care ( Alba). Vital Signs Temperature 98.2 F 07/15/17 17:47 Pulse Rate 88 07/15/17 17:47 Respiratory Rate 18 07/15/17 17:47 Blood Pressure 156/54 07/15/17 17:47 O2 Sat by Pulse Oximetry 100 07/15/17 17:47 Temperature 98.2 F 07/15/17 17:47 Pulse Rate 62 07/15/17 18:29 Respiratory Rate 16 07/15/17 18:29 Blood Pressure 146/79 07/15/17 18:29 O2 Sat by Pulse Oximetry 97 07/15/17 18:29 Oxygen Delivery Oxygen Delivery Room Air Medical Decision Making - Medical Records Medical records reviewed: Yes I reviewed the patient's medical records.
[2017-07-15] MEDS ORDERED: 0.9 % Sodium Chloride 1,000 ML IVC ONE (20:51)
[2017-07-15 20:52] LABS: Bilirubin,Urine Negative (Negative); Blood,Urine Negative (Negative); Clarity,Urine Clear (Clear); Color,Urine Yellow (Yellow); Glucose,Urine (UA) Normal (Normal); Ketones,Urine Negative (Negative); Leukocyte Esterase,Urine Trace (Negative); Nitrite,Urine Negative (Negative); Protein,Urine Negative (Neg-Trace); Urobilinogen,Urine Normal (Normal)
[2017-07-15 20:53] LABS: Bacteria,Urine None Seen per hpf (None-Few); Hyaline Casts,Urine None Seen per lpf (None-Few); RBC,Urine 0-3 per hpf (0-3); Squamous Epithelial Cell,Urine Few per lpf (None-Few); WBC,Urine 0-3 per hpf (0-3)
[2017-07-15] MEDS ORDERED: Ondansetron 4 MG/2 ML VIAL IVP ONE (21:09)
[2017-07-15] MEDS ORDERED: *HR* Morphine 2 MG/ML SYRINGE IVP ONE (21:09)
[2017-07-15 21:37] LABS: Basophils % 0.5 %; Eosinophils # 0.2 K/mcL (0.0-0.6); Hematocrit 38.9 % (35.3-44.9); Hemoglobin 14.2 g/dL (11.5-15.4); Immature Granulocytes % 0.1 % (0-4); Lymphocytes % 38.7 %; Mean Corpuscular HGB Conc 36.5 g/dL (31.6-35.5); Mean Corpuscular Hemoglobin 30.7 pg (28.0-33.3); Mean Platelet Volume 9.4 fL (9.4-12.4); Monocytes # 0.6 K/mcL (0.0-1.3); Monocytes % 7.8 %; Platelet Count 284 K/mcL (140-400); Red Blood Count 4.63 M/mcL (3.82-4.97); Red Cell Distribution Width 12.3 % (11.5-14.5); Segmented Neutrophils % 50.9 %
--- NOTE | 2017-07-15 22:23 | Emergency Department Note ---
Disposition Clinical Impression: Suprapubic abdominal pain, Urinary retention, Renal cyst Disposition: Admitted As Inpatient Condition: Fair Referrals: Unassigned,Provider [Non-Partnered Physician] - Forms: ED Satisfaction Letter, Work/School Release Time of Disposition: 22:22 Abdominal Pain HPI - General Chief Complaint: ED Abdominal Pain Stated Complaint: ABD/BLADDER PAIN/GENIE Time Seen by Provider: 07/15/17 18:06 Source: patient - History of Present Illness Pain Scale: 5 - Related Data Home Medications Medication Instructions Recorded Confirmed Potassium Chloride [Klor-Con 20 meq PO BID 11/18/15 07/15/17 Sprinkle] Amlodipine Besylate 5 mg PO DAILY 12/20/15 07/15/17 Carboxymethylcellulose Sodium 1 drop OP QID 12/20/15 07/15/17 [Refresh Tears] Cyclosporine [Restasis] 1 drop OP Q12H 12/20/15 07/15/17 Meclizine [Antivert] 25 mg PO DAILY PRN 12/20/15 07/15/17 Simvastatin [Zocor] 20 mg PO HS 12/20/15 07/15/17 Triamterene/HCTZ 37.5/25mg 1 tab PO DAILY 12/20/15 07/15/17 [Dyazide] Vit A/C/E AC/Znox/Cupric Oxide 2 each PO DAILY 12/20/15 07/15/17 [Eye Vitamin-Minerals Tablet] Ranitidine HCl [Acid Retort Engineer] 150 mg PO BID 01/29/17 07/15/17 diazePAM [Valium] 5 mg PO TID PRN 01/29/17 07/15/17 Metoprolol XL (24 HR) Succ [Toprol 12.5 mg PO DAILY 07/15/17 07/15/17 XL] Allergies Allergy/AdvReac Type Severity Reaction Status Date / Time metoclopramide [From Reglan] Allergy Unknown Unknown Verified 07/13/17 21:25 Sulfa (Sulfonamide Allergy Unknown Unknown Verified 07/13/17 21:25 Antibiotics) tolterodine [From Detrol] Allergy Unknown Unknown Verified 07/13/17 21:25 Constitutional: Denies: fever Cardiovascular: Denies: chest pain Respiratory: Denies: cough Gastrointestinal: Reports: abdominal pain. Denies: nausea, vomiting, diarrhea Genitourinary: Reports: urgency, frequency. 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 Rose and Dr. Low see their note for documentationbounce back from visit yesterda for intractable abdominal pain and urinary retention, Yeager catheter with thousand cc of output, CBC BMP within normal limits renal cyst on CT scan from yesterday, suspect urinary retention however patient does not feel that she can tolerate her pain at home, admitted hospitalist for pain management possible urology consultation Vital Signs Temperature 98.2 F 07/15/17 17:47 Pulse Rate 88 07/15/17 17:47 Respiratory Rate 18 07/15/17 17:47 Blood Pressure 156/54 07/15/17 17:47 O2 Sat by Pulse Oximetry 100 07/15/17 17:47 Temperature 98.2 F 07/15/17 17:47 Pulse Rate 53 07/15/17 21:45 Respiratory Rate 18 07/15/17 21:45 Blood Pressure 162/60 07/15/17 21:45 O2 Sat by Pulse Oximetry 95 07/15/17 21:45 Oxygen Delivery Oxygen Delivery Room Air Abdominal Pain - Differential Diagnosis Differential Diagnosis: Likely: abdominal pain non-specific, diverticulitis, diverticulosis - Medical Records Medical records reviewed: Yes I reviewed the patient's medical records. - Lab Data Lab results reviewed: Yes I reviewed the patient's lab results. Result diagrams: 07/15/17 21:30 Lab Results 07/15/17 07/15/17 07/15/17 Range/Units 19:20 21:30 21:30 WBC 7.9 (4.3-11.1) K/mcL RBC 4.63 (3.82-4.97) M/mcL Hgb 14.2 (11.5-15.4) g/dL Hct 38.9 (35.3-44.9) % MCV 84.0 (83.0-100.0) fL MCH 30.7 (28.0-33.3) pg MCHC 36.5 H (31.6-35.5) g/dL RDW 12.3 (11.5-14.5) % Plt Count 284 (140-400) K/mcL MPV 9.4 (9.4-12.4) fL Immature Gran % 0.1 (0-4) % Seg Neutrophils % 50.9 % Lymphocytes % 38.7 % Monocytes % 7.8 % Eosinophils % 2.0 % Basophils % 0.5 % Neutrophils # 4.0 (1.6-8.9) K/mcL Lymphocytes # 3.0 (0.6-4.6) K/mcL Monocytes # 0.6 (0.0-1.3) K/mcL Eosinophils # 0.2 (0.0-0.6) K/mcL Basophils # 0.0 (0.0-0.2) K/mcL Urine Color Yellow (Yellow) Urine Clarity Clear (Clear) Urine pH 7.0 (5.0-8.0) pH Units Ur Specific [place] 1.010 (1.010-1.025) Urine Protein Negative (Neg-Trace) mg/dL Urine Glucose (UA) Normal (Normal) mg/dL Urine Ketones Negative (Negative) mg/dL Urine Blood Negative (Negative) Urine Nitrite Negative (Negative) Urine Bilirubin Negative (Negative) Urine Urobilinogen Normal (Normal) mg/dL Ur Leukocyte Esterase Trace H (Negative) Urine Microscopic RBC 0-3 (0-3) per hpf Urine Microscopic WBC 0-3 (0-3) per hpf Ur Squamous Epith Cells Few (None-Few) per lpf Urine Bacteria None Seen (None-Few) per hpf Hyaline Casts None Seen (None-Few) per lpf Specimen Rejected Hemolyzed - Radiology Data Radiology results reviewed: Yes I reviewed the patient's radiology results. Attestation Statement - Attestation Attestation: I, Rigoberto Sanchez MD, personally evaluated this patient and discussed their management with the resident physician. I reviewed the resident's note and agree with the documented findings, medical decision making, and plan of care. This patient was signed out at shift change from Dr. Rose and Dr. Low. Please refer to their notes for complete details of history and physical examination. She was seen here last night with mid lower abdominal pain. She had a workup including a CT of the abdomen which just showed a distended bladder. She returns tonight complaining of continued mid lower abdominal pain. On examination patient is a well-developed thin elderly female in no acute distress. She is alert and oriented. There is no cyanosis or diaphoresis. Breath sounds are decreased but clear and equal bilaterally. Heart regular. Abdomen is soft with normal bowel sounds. There is moderate mid suprapubic tenderness. Labs and urine removed. A Yeager catheter was placed. The hospitalist, Dr. Stockton, was consulted and accepted admission of the patient.
[2017-07-16] MEDS ORDERED: Ondansetron 4 MG/2 ML VIAL IVP PRN (01:20)
[2017-07-16] MEDS ORDERED: Naloxone 0.4 MG/ML INJ IVP PRN (01:20)
[2017-07-16] MEDS: (Cyclosporine [Restasis] 1 DROP) OP SCH ×2 (02:06→12:49)
[2017-07-16 02:28] LABS: Prothrombin Time 11.2 Seconds (9.4-12.1)
--- NOTE | 2017-07-16 02:46 | Internal Med History&Physical ---
Date of Encounter: 07/16/17 Time of Encounter: 01:30 Assessment and Plan (1) Urinary retention Current visit: Yes Status: Acute Probable urinary retention causing suprapubic pain Continue Yeager catheter, Urology consult CT abdomen and pelvis - IMPRESSION: The bladder is moderately distended with urine, with a small portion of the bladder extending into the left inguinal canal, though unchanged in appearance since 2016. No bladder mass. No other acute pelvic abnormality is seen. No acute inflammatory process identified in the abdomen or pelvis. Mildly increased size of a left renal mass which measures 4.6 cm, and on the previous contrast-enhanced CT appear to represent a simple cyst with no solid component. On today's exam, without contrast, it appears isodense diffusely to renal parenchyma, which could be related to proteinaceous or hemorrhagic products, though the Hounsfield unit density of this is unchanged from the previous study. Tiny hyperdense lesions seen within the upper pole of the right kidney is likely a small hemorrhagic or proteinaceous cortical cyst. 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 Multilevel degenerative changes are seen within the spine, with disc disease as well as canal stenosis, greatest at L4-L5 which appear severe. (2) HTN (hypertension) Current visit: No Status: Chronic Essential hypertension, controlled, continue triamterene/HCTZ, Toprol, monitor Qualifiers: Hypertension type: essential hypertension Qualified Code(s): I10 - Essential (primary) hypertension (3) HLD (hyperlipidemia) Current visit: No Status: Chronic Continue Zocor Qualifiers: Hyperlipidemia type: unspecified Qualified Code(s): E78.5 - Hyperlipidemia , unspecified (4) CAD (coronary artery disease) Current visit: No Status: Chronic Coronary artery disease - stable, no anginal symptoms Continue home meds Qualifiers: Coronary Disease-Associated Artery/Lesion type: unspecified vessel or lesion type [place] vs. transplanted heart: [place] heart Associated angina: without angina Qualified Code(s): I25.10 - Atherosclerotic heart disease of [place] coronary artery without angina pectoris (5) Breast CA Current visit: No Status: Chronic Qualifiers: Breast location: unspecified site of breast Patient sex: female Laterality: right Qualified Code(s): C50.911 - Malignant neoplasm of unspecified site of right female breast (6) DVT prophylaxis Current visit: Yes Status: Acute Continue SCDs Internal Medicine - H&P: HPI Chief complaint: Abdominal pain Admitted From: Emergency Dept Plans for Post Hospital Care: Home History of present illness: Ms. Land is a 86 year old female with past medical history of coronary artery disease, CVA, hyperlipidemia, hypertension and history of cancer. She presents to the ED with complaints of suprapubic pain. Examined in the room. Patient is awake and alert. Able to provide history. Not in any distress. No family members at bedside. Patient states her lower abdominal pain started about 1 week ago and is gradually worsening. She does complain of some increased urinary frequency. Mild dysuria. No hematuria. No change in bowel movement and most recent bowel movement was today. Patient presented to the ED about 24 hours earlier and imaging was done and was negative. Patient does have left renal cyst. She was also found to have moderately distended bladder otherwise no abnormalities. Patient returns today for suprapubic pain. Patient denies chest pain, denies shortness of breath, denies palpitations or fever or any other problems. Patient describes the pain as constant and all. Rates it 4 out of 10. Does not radiate. No other aggravating or alleviating factors. No other associated symptoms. Initial workup in the knees negative. Patient had a Yeager catheter placed for suspected urinary retention. Patient is being admitted for suprapubic pain and urinary retention. CODE STATUS full code. Past Med Surg Social Fam HX - Past Medical History Medical history: cancer, coronary artery disease, CVA, hyperlipidemia, hypertension, other Psychiatric history: anxiety - Past Surgical History Surgical History: appendectomy, hysterectomy, other - Social History Smoking Status: Never smoker Smokeless Tobacco Status: No Alcohol use: none Drug use: none - Family History Father History Unknown: Yes Hx Family Cancer: Yes Mother Living Status: Hx Family Cancer: Yes Internal Medicine - H&P: Meds RX: Potassium Chloride [Klor-Con Sprinkle] 20 meq PO BID 11/18/15 [History] RX: Amlodipine Besylate 5 mg PO DAILY 12/20/15 [History] RX: Carboxymethylcellulose Sodium [Refresh Tears] 1 drop OP QID 12/20/15 [ History] RX: Cyclosporine [Restasis] 1 drop OP Q12H 12/20/15 [History] RX: Meclizine [Antivert] 25 mg PO DAILY PRN 12/20/15 [History] RX: Simvastatin [Zocor] 20 mg PO HS 12/20/15 [History] RX: Triamterene/HCTZ 37.5/25mg [Dyazide] 1 tab PO DAILY 12/20/15 [History] RX: Vit A/C/E AC/Znox/Cupric Oxide [Eye Vitamin-Minerals Tablet] 2 each PO DAILY 12/20/15 [History] RX: Ranitidine HCl [Acid Rotary Engine Assembler] 150 mg PO BID 01/29/17 [History] RX: diazePAM [Valium] 5 mg PO TID PRN 01/29/17 [History] Metoprolol XL (24 HR) Succ [Toprol XL] 12.5 mg PO DAILY 07/15/17 [History] 3 Allergy/AdvReac Type Severity Reaction Status Date / Time metoclopramide [From Reglan] Allergy Unknown Unknown Verified 07/13/17 21:25 Sulfa (Sulfonamide Allergy Unknown Unknown Verified 07/13/17 21:25 Antibiotics) tolterodine [From Detrol] Allergy Unknown Unknown Verified 07/13/17 21:25 All Systems PM: A 10-system review of systems was performed and is negative for pertinent findings except as documented above in the HPI. - Constitutional Constitutional: no fatigue, no fever(s), no weakness - EENT Eyes: no blurry vision - Cardiovascular Cardiovascular ROS IM: no chest pain, no diaphoresis, no dyspnea, no dyspnea on exertion, no edema, no lightheadedness, no orthopnea, no palpitations, no syncope - Respiratory Respiratory: no cough, no dyspnea, no hemoptysis, no dyspnea on exertion, no wheezing, no chest congestion - Gastrointestinal Gastrointestinal: abdominal pain, constipation, no bloating, no cramping, no diarrhea, no hematemesis, no hematochezia, no melena, no nausea, no vomiting - Genitourinary Genitourinary: dysuria, urinary frequency, urinary urgency - Musculoskeletal Musculoskeletal ROS IM: no back pain - Neurological Neurological ROS: no abnormal gait, no confusion, no dizziness, no loss of vision, no numbness, no tingling - Constitutional Vitals: Temp Pulse Resp BP Pulse Ox 97.8 F 73 16 179/77 99 07/16/17 00:57 07/16/17 00:57 07/16/17 00:57 07/16/17 00:57 07/16/17 00:57 General appearance: Present: A&O X 3, pleasant, no acute distress, answers questions appropriately - Head Head exam: Present: atraumatic - Eye Eye exam: Present: EOMI - ENT ENT exam: Present: mucous membranes dry - Respiratory Respiratory exam: Present: CTAB. Absent: accessory muscle use, rales, rhonchi, wheezes, tachypnea - Cardiovascular Cardiovascular exam: Present: RRR, +S1, +S2 - GI/Abdominal GI/Abdominal exam: Present: soft, tenderness (Mild suprapubic). Absent: distended, firm, guarding - Extremities Exam Extremities exam: Present: radial pulses palpable and symmetrical. Absent: calf tenderness, cyanotic, pedal edema - Neurological Exam Neurological exam: Present: alert, oriented X3, no focal deficits. Absent: facial droop, speech deficit Internal Med - H&P Results - Labs CBC & Chem 7: 07/15/17 21:30 07/16/17 02:10 Labs: Cardiac Enzymes 07/16/17 Range/Units 02:10 Troponin I 0.01 (0-0.03) ng/mL
[2017-07-16 02:50] LABS: Alanine Aminotransferase 18 Units/L (0-55); Albumin 4.4 g/dL (3.5-5.0); Albumin/Globulin Ratio 1.3 (1.1-2.2); Alkaline Phosphatase 59 Units/L (38-126); Aspartate Amino Transferase 21 Units/L (5-34); BUN/Creatinine Ratio 10 (6-26); Bilirubin,Total 0.7 mg/dL (0.2-1.2); Blood Urea Nitrogen 6 mg/dL (7-20); Calcium 9.9 mg/dL (8.6-10.8); Carbon Dioxide 27 mEq/L (19-29); Chloride 101 mEq/L (98-109); Globulin 3.4 g/dL (2.4-3.5); Glucose 116 mg/dL (70-99); Osmolality,Calculated 287 (280-300); Potassium 3.5 mEq/L (3.5-4.5); Sodium 139 mEq/L (136-145); Total Protein 7.8 g/dL (6.0-8.3); eGFR For African Americans > 60 (> 60); eGFR For Non-African Americans > 60 (> 60)
[2017-07-16] MEDS ORDERED: Famotidine 20 MG/2 ML VIAL IVP SCH (06:00)
[2017-07-16] MEDS: Acetaminophen 325 MG TABLET PO PRN ×2 (09:00→15:10)
[2017-07-16] MEDS ORDERED: Famotidine 20 MG TABLET PO SCH (09:00)
[2017-07-16] MEDS: Metoprolol XL (24 HR) Succ 25 MG TAB.ER.24H PO SCH (09:31)
[2017-07-16] MEDS: amLODIPine 5 MG TABLET PO SCH (09:32)
[2017-07-16] MEDS: Artificial Tears SOLN 15 ML BOTTLE OP SCH ×4 (09:33→22:14)
[2017-07-16] MEDS: EYE VITAMIN MINERALS PO SCH (09:41)
[2017-07-16] MEDS ORDERED: MOM Conc 10 ML UD.LIQ PO ONE (16:19)
--- NOTE | 2017-07-16 18:12 | Internal Med Progress Note ---
Date of Encounter: 07/16/17 - Constitutional Vitals: Temp Pulse Resp BP Pulse Ox 98.2 F 70 15 131/65 98 07/16/17 14:58 07/16/17 14:58 07/16/17 14:58 07/16/17 14:58 07/16/17 14:58 General appearance: Present: A&O X 3, pleasant, no acute distress, answers questions appropriately Internal Medicine: Result - Labs CBC & Chem 7: 07/15/17 21:30 07/16/17 02:10 Labs: BMP 07/16/17 02:10 Sodium 139 D Potassium 3.5 Chloride 101 Carbon Dioxide 27 BUN 6 L Creatinine 0.62 Glucose 116 H Calcium 9.9 Cardiac Enzymes 07/16/17 07/16/17 07/16/17 Range/Units 02:10 07:50 13:47 Troponin I 0.01 0.00 0.00 (0-0.03) ng/mL Liver Function 07/16/17 Range/Units 02:10 Total Bilirubin 0.7 (0.2-1.2) mg/dL AST 21 (5-34) Units/L ALT 18 (0-55) Units/L Alkaline Phosphatase 59 (38-126) Units/L Albumin 4.4 (3.5-5.0) g/dL - ABG Interpretation ABG results: PT/INR, D-dimer PT 11.2 Seconds (9.4-12.1) 07/16/17 02:10 - Impressions Impressions Chest X-Ray 07/16/17 01:30 IMPRESSION: Hyperaeration without acute focal infiltrate. D/ / Beto Newman MD / Beto Newman MD Interpreting Provider: Beto Newman MD Consult Discharge Plan - Plan Referrals: Ck Cline MD [Partnered Physician] - 07/30/17 8:00 am
--- NOTE | 2017-07-16 18:17 | Discharge Summary ---
Date of Encounter: 07/16/17 Time of Encounter: 08:45 - Discharge Diagnosis (1) Urinary retention Priority: Primary Status: Acute Comments: Per primary rn, pt had 2000ml urine in bladder when salas inserted. Pt will keep salas in and follow up with Dr. Cline in the office. (2) Suprapubic abdominal pain Priority: Secondary Status: Chronic Comments: Pt with acute on chronic suprapubic abdominal pain. She has been seen by Dr. Cline extensively for this. Pt with tenderness to palpation, she states is unchanged from normal. (3) Abdominal pain Priority: Secondary Status: Chronic Qualifiers: Abdominal location: lower abdomen, unspecified Qualified Code(s): R10.30 - Lower abdominal pain, unspecified (4) Breast CA Priority: Secondary Status: Chronic Qualifiers: Breast location: unspecified site of breast Patient sex: female Laterality: right Qualified Code(s): C50.911 - Malignant neoplasm of unspecified site of right female breast (5) CAD (coronary artery disease) Priority: Secondary Status: Chronic Comments: Pt denies chest pain. Continue BB Simvastatin Qualifiers: Coronary Disease-Associated Artery/Lesion type: unspecified vessel or lesion type [place] vs. transplanted heart: [place] heart Associated angina: without angina Qualified Code(s): I25.10 - Atherosclerotic heart disease of [place] coronary artery without angina pectoris (6) HLD (hyperlipidemia) Priority: Secondary Status: Chronic Comments: Continue Statin Qualifiers: Hyperlipidemia type: unspecified Qualified Code(s): E78.5 - Hyperlipidemia , unspecified (7) HTN (hypertension) Priority: Secondary Status: Chronic Comments: Chronic. Continue home medications Qualifiers: Hypertension type: essential hypertension Qualified Code(s): I10 - Essential (primary) hypertension (8) DVT prophylaxis Priority: Secondary Status: Acute Comments: SCDs - Discharge Medications Home Medications: Potassium Chloride [Klor-Con Sprinkle] 20 meq PO BID 11/18/15 [History] Amlodipine Besylate 5 mg PO DAILY 12/20/15 [History] Carboxymethylcellulose Sodium [Refresh Tears] 1 drop OP QID 12/20/15 [History] Cyclosporine [Restasis] 1 drop OP Q12H 12/20/15 [History] Meclizine [Antivert] 25 mg PO DAILY PRN 12/20/15 [History] Simvastatin [Zocor] 20 mg PO HS 12/20/15 [History] Triamterene/HCTZ 37.5/25mg [Dyazide] 1 tab PO DAILY 12/20/15 [History] Vit A/C/E AC/Znox/Cupric Oxide [Eye Vitamin-Minerals Tablet] 2 each PO DAILY [History] Ranitidine HCl [Acid Pan Dumper] 150 mg PO BID 01/29/17 [History] diazePAM [Valium] 5 mg PO TID PRN 01/29/17 [History] Metoprolol XL (24 HR) Succ [Toprol XL] 12.5 mg PO DAILY 07/15/17 [History] Allergies/Adverse Reactions: 3 Allergy/AdvReac Type Severity Reaction Status Date / Time metoclopramide [From Reglan] Allergy Unknown Unknown Verified 07/13/17 21:25 Sulfa (Sulfonamide Allergy Unknown Unknown Verified 07/13/17 21:25 Antibiotics) tolterodine [From Detrol] Allergy Unknown Unknown Verified 07/13/17 21:25 Procedures/tests Complete & Pending: Procedures Performed prior 72 hours Category Date Time Status ECG 12 lead ECG [ECG] Routine Y 07/16/17 01:20 Completed Date of admission: 07/15/17 23:44 Primary care physician: Joesph Miller Colopy Consults: 07/16/17 02:59 Consult to Urology [CONS] Routine Consulting Provider: Urology Charleen Reason for Consult: Probable urinary retention Call Completed: No Discharging clinician: Yaquelin Danielle Anticipated date of discharge: 07/16/17 - Patient Status Disposition: Home, Self-Care Condition: Good Functional capacity at discharge: independent ambulation Overall status at discharge: patient is progressing back to baseline - Discharge Instructions Follow Up With: Ck Cline MD [Partnered Physician] - 07/30/17 8:00 am Additional Instructions: Follow up with Dr Cline in the next week. Keep salas in until you see Dr. Cline Return to the ER as needed for any other problems or concerns or if your symptoms return or worsen. REsume your normal home medications Resume your normal routine as tolerated. - Diet and Activity Activity: increase activity as tolerated, resume usual activities as tolerated Diet: advance to your usual diet Hospital course: Ms. Land is a 86 year old female with past medical history of breast cancer with lymphedema, hyperlipidemia, coronary artery disease, chronic abdominal pain , urinary retention, pancreatic mass, renal masses. She is a well-known patient of Dr. Cline. Patient reports lower abdominal pain and one week has become increasingly worse. She complained of increased urinary frequency and mild dysuria. She denies hematuria and no change in bowel movements. Patient was in the emergency departments, imaging was done in the negative. She has a left renal cyst and was found have a moderately distended bladder. She was sent home and returned at time of admission for suprapubic pain. A Salas catheter was inserted and 1500 mL's of urine was returned. Patient has been stable throughout the day. Patient had CT abdomen and pelvis on 07/13 show moderately distended bladder with small portion of the bladder extending the left inguinal canal, no bladder mass, mildly increased left renal mass which measures 4.6 and appears to represent a simple cyst with no solid component. Appears to be unchanged from prior. Patient has been stable through the day. I discussed discharge with Dr. Cline. She will go home with Salas and follow up with him in the office. Urinalysis collected in the emergency department showed a trace of leukocyte esterase, culture is ordered and pending. Labs are within normal limits, vitals are within normal limits and stable. Patient is ready for discharge. - Time Spent with Patient Total time spent providing and/or coordinating discharge services: Less than 30 minutes - Constitutional Vitals: Temp Pulse Resp BP Pulse Ox 98.2 F 70 15 131/65 98 07/16/17 14:58 07/16/17 14:58 07/16/17 14:58 07/16/17 14:58 07/16/17 14:58 General appearance: Present: A&O X 3, pleasant, no acute distress, answers questions appropriately - Head Head exam: Present: atraumatic, normal inspection, normocephalic - Eye Eye exam: Present: normal appearance, conjuntiva pink, sclera anicteric - ENT ENT exam: Present: mucous membranes moist, normal exam, normal external ear exam - Neck Neck exam general surgery: Present: normal inspection, supple, trachea midline. Absent: lymphadenopathy, tenderness - Respiratory Respiratory exam: Present: CTAB. Absent: accessory muscle use, chest wall tenderness, rales, respiratory distress, rhonchi, wheezes - Cardiovascular Cardiovascular exam: Present: RRR, +S1, +S2. Absent: diastolic murmur, gallop, rubs, systolic murmur - GI/Abdominal GI/Abdominal exam: Present: normal bowel sounds, soft, tenderness, no peritoneal signs. Absent: distended - Extremities Exam Extremities exam: Present: normal inspection, warm, radial pulses palpable and symmetrical. Absent: calf tenderness, cyanotic, pedal edema - Neurological Exam Neurological exam: Present: alert, oriented X3, no focal deficits, pronater drift. Absent: facial droop, speech deficit - Skin Skin exam: Present: dry, intact, normal color, warm. Absent: rash
[2017-07-16] MEDS: Famotidine 20 MG TABLET PO SCH (22:14)
[2017-07-17] MEDS: (Cyclosporine [Restasis] 1 DROP) OP SCH ×2 (02:11→13:44)
[2017-07-17] MEDS: amLODIPine 5 MG TABLET PO SCH (09:37)
[2017-07-17] MEDS: Metoprolol XL (24 HR) Succ 25 MG TAB.ER.24H PO SCH (09:37)
[2017-07-17] MEDS: Famotidine 20 MG TABLET PO SCH (09:37)
[2017-07-17] MEDS: EYE VITAMIN MINERALS PO SCH (09:37)
[2017-07-17] MEDS: Artificial Tears SOLN 15 ML BOTTLE OP SCH ×2 (09:38→13:44)
[2017-07-17 11:14] VITALS: BP 149/71
--- NOTE | 2017-07-17 12:09 | Internal Med Progress Note ---
Date of Encounter: 07/17/17 Time of Encounter: 09:45 - Assessment and plan (1) Urinary retention Current Visit: Yes Status: Acute Assessment and plan: She was admitted with lower abdominal pain and urinary retention. Salas catheter was inserted, return 1500 mL's of urine. Patient denies abdominal pain today. I spoke with Dr. Cline about patient, she is well known to his office. She will be sent home with Salas catheter and follow up in the office. (2) Suprapubic abdominal pain Current Visit: Yes Status: Resolved (3) Abdominal pain Current Visit: No Status: Resolved Assessment and plan: Chronic. Denies today. Abdomen is nontender, flat, bowel sounds present. Qualifiers: Abdominal location: lower abdomen, unspecified Qualified Code(s): R10.30 - Lower abdominal pain, unspecified (4) Breast CA Current Visit: No Status: Chronic Assessment and plan: Patient with breast cancer, right mastectomy, lymphedema to right arm. Chronic and unchanged. Qualifiers: Breast location: unspecified site of breast Patient sex: female Laterality: right Qualified Code(s): C50.911 - Malignant neoplasm of unspecified site of right female breast (5) CAD (coronary artery disease) Current Visit: No Status: Chronic Assessment and plan: Patient denies chest pain. Continue home medications. Continue beta jhonny and simvastatin. Qualifiers: Coronary Disease-Associated Artery/Lesion type: unspecified vessel or lesion type [place] vs. transplanted heart: [place] heart Associated angina: without angina Qualified Code(s): I25.10 - Atherosclerotic heart disease of [place] coronary artery without angina pectoris (6) HLD (hyperlipidemia) Current Visit: No Status: Chronic Assessment and plan: Chronic. Continue simvastatin. Qualifiers: Hyperlipidemia type: unspecified Qualified Code(s): E78.5 - Hyperlipidemia , unspecified (7) HTN (hypertension) Current Visit: No Status: Chronic Assessment and plan: Chronic. Well controlled. Continue home medications. Qualifiers: Hypertension type: essential hypertension Qualified Code(s): I10 - Essential (primary) hypertension (8) DVT prophylaxis Current Visit: Yes Status: Acute Assessment and plan: No pharmacologic intervention. SCDs. - Subjective Interval history: Patient was seen and assessed at 9:45 AM. She is alert and awake, she denies pain, dizziness, nausea, vomiting, diaphoresis, constipation. She states that her abdominal pain is back to baseline. She states that she is ready to go home. We discussed plan of care was seeing Dr. Cline, she was agreeable and will be able to make it to the appointment. - Constitutional Vitals: Temp Pulse Resp BP Pulse Ox 98.3 F 77 14 149/71 98 07/17/17 11:13 07/17/17 11:13 07/17/17 11:13 07/17/17 11:13 07/17/17 11:13 General appearance: Present: A&O X 3, pleasant, no acute distress, answers questions appropriately - Head Head exam: Present: atraumatic, normal inspection, normocephalic - Eye Eye exam: Present: normal appearance, conjuntiva pink, sclera anicteric - Neck Neck exam general surgery: Present: normal inspection, supple, trachea midline. Absent: lymphadenopathy, tenderness - Respiratory Respiratory exam: Present: CTAB. Absent: accessory muscle use, chest wall tenderness, rales, rhonchi, wheezes - Cardiovascular Cardiovascular exam: Present: RRR, +S1, +S2. Absent: diastolic murmur, gallop, rubs, systolic murmur - GI/Abdominal GI/Abdominal exam: Present: normal bowel sounds, soft, no peritoneal signs. Absent: distended, hepatomegaly, tenderness - Extremities Exam Extremities exam: Present: normal capillary refill, normal inspection, warm, radial pulses palpable and symmetrical. Absent: calf tenderness, cyanotic, pedal edema, tenderness - Neurological Exam Neurological exam: Present: oriented X3, no focal deficits. Absent: facial droop, speech deficit - Skin Skin exam: Present: dry, intact, normal color, warm. Absent: rash Internal Medicine: Result - Labs CBC & Chem 7: 07/15/17 21:30 07/16/17 02:10 Labs: Cardiac Enzymes 07/16/17 Range/Units 13:47 Troponin I 0.00 (0-0.03) ng/mL - ABG Interpretation ABG results: PT/INR, D-dimer PT 11.2 Seconds (9.4-12.1) 07/16/17 02:10 Consult Discharge Plan - Plan Additional Instructions: Follow up with Dr Cline in the next week. Keep salas in until you see Dr. Cline Return to the ER as needed for any other problems or concerns or if your symptoms return or worsen. REsume your normal home medications Resume your normal routine as tolerated. Referrals: Ck Cline MD [Partnered Physician] - 07/30/17 8:00 am
--- NOTE | 2017-07-19 21:20 | Electrocardiograph Report ---
[place] [id number] Test Date: 2017-07-16 Pat Name: Tessa Land Department: 113 Room: 3B33 Gender: F Flight Service Specialist: MARY : [id number] Requested By: [place] Ring Order Number: [id number] Reading MD: Juan Jose Dai MD Measurements Intervals [place] Rate: 67 P: 64 SC: 256 QRS: 89 QRSD: 147 T: 36 QT: 426 QTc: 441 Interpretive Statements SINUS RHYTHM WITH FIRST DEGREE AV BLOCK WITH OCCASIONAL VENTRICULAR PREMATURE COMPLEXES RIGHT BUNDLE BRANCH BLOCK Electronically Signed On 07-19-2017 21:18:58 EDT by Juan Jose Dai MD
== END 2017-07-17 15:00 | disposition home or self-care (01) ==
LOC: EMEROO 17:40 → 3BNU 17:40
PROVIDERS: ADMIT Family Medicine; ATTEND Registered Nurse